=== PATIENT | male | born 1990 | race Caucasian/White ===

== ENCOUNTER 2024-10-29 18:30 | Emergency (ER) | payer OTHER, SELFPAY ==
[2024-10-29 18:35] VITALS: BP 119/72
[2024-10-29 19:25] LABS: % Basophils 0.6 % (0-2); % Eosinophils 0.9 % (0-6); % Lymphocytes 8.9 % (20.5-51.1); % Monocytes 5.7 % (1.7-9.3); % Neutrophils 82.9 % (42.2-75.2); Absolute Basophils 0.1 10^3/uL (0-0.2); Absolute Eosinophils 0.1 10^3/uL (0-0.7); Absolute Immature Granulocytes 0.1 10^3/uL (0-0.05); Absolute Lymphocytes 0.8 10^3/uL (1.2-3.4); Absolute Monocytes 0.5 10^3/uL (0.1-0.6); Absolute Neutrophils 7.5 10^3/uL (1.4-6.5); Hematocrit 46.1 % (39.0-52.0); Hemoglobin 16.2 g/dL (13.0-18.0); Mean Corp Hgb Conc. 35.1 g/dL (33.0-37.0); Mean Corpuscular Hgb 29.3 pg (27.0-31.0); Mean Corpuscular Volume 83.5 fL (80.0-94.0); Mean Platelet Volume 8.5 fL (7.4-10.4); Nucleated Red Blood Cells % 0 % (-); Platelet Count 253 10^3/uL (130-400); Red Blood Cell Count 5.52 10^6/uL (4.70-6.10); Red Cell Dist. Width 12.6 % (11.5-14.5)
--- NOTE | 2024-10-29 19:29 | ED.GENMED ---
History of Present Illness
General
Chief Complaint: Abdominal Symptoms
Source: patient
Exam Limitations: none
Time Seen by Provider: 10/29/24 19:28
Nursing documentation reviewed up to this point in time: agreed with
History of Present Illness
History of Present Illness:
34-year-old male with no clinically significant past medical history presents for nausea, vomiting and diarrhea. Fever 101.0 earlier today. Can't keep anything down. Back and legs ache. Symptoms started two evenings ago. Last emesis 3 hours ago,
last diarrhea 1 hour ago. No recent antibiotics or travel.
Past History
Past History
ED Past Surgical History: Orthopedic
Social History
Tobacco: Non-smoker
Alcohol: Occasional
Personal:
Living: with family
Employment: Employed
Review of Systems
Review of Systems
Allergies reviewed?: Yes
All Other Systems: ROS reviewed and negative except as documented in HPI and ROS
Constitutional: Reports fever
EENT: Denies sore throat
Respiratory: Denies cough or trouble breathing
Cardiac: Denies chest pain
ABD/GI: Reports nausea, vomiting and diarrhea; Denies abdominal pain, bloody stools or black stools
: Denies dysuria, frequency, flank pain, difficulty voiding or urgency
Musculoskeletal: Reports other (Aching in legs and back)
Skin: Reports no symptoms
Neurological: Reports no symptoms
Phy Exam
Physical Exam
Physical Exam:
GENERAL: No acute distress. A&Ox3.
CONSTITUTIONAL: Afebrile.
EYES: clear, conjunctivae normal
ENMT: moist mucus membranes, Pharynx nl
RESPIRATORY: Regular respirations, nonlabored, lungs clear.
CARDIOVASCULAR: Regular rate and rhythm, no murmurs, no rubs.
GI: Soft, nontender, normal BS
MUSCULOSKELETAL: Moves with ease. Well perfused.
SKIN: Warm, dry, pink
PSYCH: Normal mood and affect. Well kept, interactive and appropriate
NEUROLOGIC: Awake, alert and oriented. No focal neurological deficits
Course
Orders/Labs/Results
Orders:
Orders
10/29/24 19:00
IV Insert/Care/Rem.- Treatment PRN
10/29/24 19:14
Complete Blood Count/With Diff Urgent
Comprehensive Metabolic Panel Urgent
Lipase Urgent
10/29/24 19:34
0.9% Sodium Chloride 1000 ml [Nss] 1,000 ml IV BOLUS
Ketorolac [Toradol] 15 mg IV NOW STA
Ondansetron Injectable [Zofran] 4 mg IV NOW STA
Abnormal Lab Results
10/29/24
19:14
Abs Immat Gran (auto) 0.1 H 10^3/uL
(0-0.05)
Absolute Neuts (auto) 7.5 H 10^3/uL
(1.4-6.5)
Absolute Lymphs (auto) 0.8 L 10^3/uL
(1.2-3.4)
Immature Gran % 1.0 H %
(0-0.5)
Neutrophils % 82.9 H %
(42.2-75.2)
Lymphocytes % 8.9 L %
(20.5-51.1)
Glucose 105 H mg/dl
(70-99)
10/29/24 19:14
10/29/24 19:14
Vital Signs
Initial and Last Documented VS:
Initial Vital Signs
Temp Pulse Resp BP Pulse Ox
99.0 F 109 16 119/72 96
10/29/24 18:35 10/29/24 18:35 10/29/24 18:35 10/29/24 18:35 10/29/24 18:35
Last Documented Vital Signs
Temp Pulse Resp BP Pulse Ox
99.8 F 85 16 103/62 98
10/29/24 19:54 10/29/24 19:54 10/29/24 18:35 10/29/24 21:00 10/29/24 21:15
MDM/Problems Addressed
Differential Diagnosis Includes:
Viral gastroenteritis, dehydration
MDM/Problems Addressed:
34-year-old male with no clinically significant past medical history presents for nausea, vomiting and diarrhea. Fever 101.0 earlier today. Can't keep anything down. Back and legs ache. Symptoms started two evenings ago. Last emesis 3 hours ago,
last diarrhea 1 hour ago. No recent antibiotics or travel.
Pt has no UTI symptoms, U/A ordered in triage cancelled.
Afebrile, Pt is well appearing, NAD
8:45 PM:
CBC normal WBC normal with elevated neutrophils (stress reaction)
CMP normal
Patient is feeling better after IV fluids and Zofran and Toradol. Trial of renée ricardo given
9:10 p.m.
Continues to feel better, drinking renée ricardo. no further vomiting or diarrhea.
States he's comfortable going home
Rx for Zofran sent to his pharmacy.
*Critical Care Note
Total Time (30-74mins, 75-104mins- exclusive of procedures): Not Applicable
ED Attending Note
-
Portions of this chart may have been created with voice recognition software.� Occasional wrong word or��sound alike� substitutions may have occurred due to the inherent limitations of voice recognition software.
Discharge Plan
Departure
Patient Disposition: Home (Routine Discharge)
Date of Disposition: 10/29/24
Time of Disposition: 21:10
Patient with high blood pressure during this ER visit?: No
Condition: Good
Discharge Problem:
Viral gastroenteritis
Instructions: Viral gastroenteritis in adults
Prescriptions:
New
ondansetron 4 mg tablet,disintegrating
4 mg PO Q8H PRN (Reason: nausea and vomiting) 3 Days Qty: 10 0RF
No Action
Claritin-D 24 Hour 10-240 mg Tablet Extended Release 24 Hr
1 tab PO DAILY
naproxen sodium [Aleve] 220 mg Tablet
440 mg PO PRN PRN (Reason: pain)
Referrals:
Angel Luis Bang MD [Family Provider] - As needed
Activity Restrictions/Additional Instructions:
As we discussed, I sent a prescription to your pharmacy for Zofran to use as needed for nausea and vomiting.
Drink at least 8 eight ounce glasses of water/fluid daily.
See your doctor in 2 to 3 days if you are not much improved by then.
I sent a prescription to your pharmacy for Zofran to use if needed for nausea and vomiting.
Interventions
Interventions:
*Risk Screen - Suicide Last Done: 10/29/24 18:35
*General Assessment Last Done: 10/29/24 18:35
*Neglect/Abuse Screening Last Done: 10/29/24 18:35
*ED- Fall Risk Assessment Last Done: 10/29/24 19:52
*ED COVID-19 Vaccine History Last Done: 10/29/24 19:52
*Nursing Disposition Last Done: 10/29/24 21:36
FH-Ntsced-Uhbuplvmvp Assessment Last Done: 10/29/24 20:17
Discharge Date and Time
Discharge Date/Time: 10/29/24 21:36
Print Language: IRAQI
[2024-10-29 19:34] LABS: ALT (SGPT) 26 U/L (0-50); AST (SGOT) 27 U/L (17-59); Albumin 4.4 g/dl (3.5-5.0); Alkaline Phosphatase 76 U/L (38-126); Blood Urea Nitrogen 17 mg/dl (9-20); Calcium 9.6 mg/dl (8.4-10.2); Carbon Dioxide 27 mmol/L (22-30); Chloride 101 mmol/L (98-107); Glucose 105 mg/dl (70-99); Lipase 61 U/L (23-300); Potassium 4.3 mmol/L (3.5-5.1); Sodium 135 mmol/L (135-145); Total Protein 6.8 g/dl (6.3-8.2); eGFR > 60.00
[2024-10-29] MEDS: TORADOL 15 MG IV (19:49)
[2024-10-29] MEDS: NSS 1000 IV (19:49)
[2024-10-29] MEDS: ZOFRAN 4 MG IV (19:49)
[2024-10-29 19:53] VITALS: BMI 22.2
[2024-10-29 19:54] VITALS: BP 106/73
[2024-10-29 20:00] VITALS: BP 104/63
[2024-10-29 21:00] VITALS: BP 103/62
== END 2024-10-29 21:36 | disposition home or self-care (01) ==
LOC: EMR 18:30
PROVIDERS: Emergency Medicine; EMERGENCY PHYSICIAN Emergency Medicine; FAMILY PHYSICIAN Family Medicine
DX: A08.4 Viral intestinal infection, unspecified (principal); R11.2 Nausea with vomiting, unspecified; R19.7 Diarrhea, unspecified; R50.9 Fever, unspecified
CPT/HCPCS: 99283; 96374; 96375; 96361; 80053; 83690; 85025